=== PATIENT | male | born 1990 | race Caucasian/White ===

== ENCOUNTER 2021-03-12 05:33 | Emergency (ER) | payer OTHER, SELFPAY ==
[2021-03-12 05:41] VITALS: BP 140/98; PULSE 60; RESP 18; O2SAT 99; BMI 26.6
== END 2021-03-12 06:23 | disposition left against medical advice (07) ==
PROVIDERS: Emergency Provider Emergency Medicine
DX: R10.9 Unspecified abdominal pain (principal)
CPT/HCPCS: 99281; 99282